=== PATIENT | male | born 2000 | race Caucasian/White ===

== ENCOUNTER 2024-10-11 02:42 | Emergency (ER) | payer BC ==
[~2024-10-11] VITALS: Ht 175.3 cm; Wt 61.4 kg
[2024-10-11 02:58] VITALS: O2SAT 100
[2024-10-11 05:00] VITALS: BP 130/58; PULSE 60; RESP 16; TEMP 36.8; O2SAT 100
== END 2024-10-11 05:09 | disposition home or self-care (01) ==
LOC: ER 02:42
DX: R07.89 Other chest pain (principal); R00.1 Bradycardia, unspecified
CPT/HCPCS: 82962; 71045; 93005; 99283; Z7610 ×2; A4606